=== PATIENT | female | born 1975 | race Caucasian/White ===

== ENCOUNTER 2016-08-04 03:05 | Emergency (ER) | payer SELFPAY ==
--- NOTE | 2016-08-04 04:48 | ED NURSING NOTES ---
Clinical Report - Nurses [facility] [address] [place] [address] 08/04/2016 3:06 Patient: VIVI ISSA TRIAGE Triage time 03:18. Acuity: LEVEL 3. Chief Complaint: RIGHT LOWER EXTREMITY PAIN and REDNESS. 03:26. Alert. SEPSIS SCREEN: Sepsis Screen. Negative (no infection suspected/documented). ZACHARY COMA SCORE: Zachary Coma Scale: 15- eyes open spontaneously (4); best verbal response- oriented x 4 (5); best motor response- obeys commands (6). --03:26 Tolu Vale R.N. 03:18 08/04/16. BP: 151/99. HR: 98. RR: 17. O2 saturation: 96% on room air. Temp: 98.7 F (oral). Pain level now: 10/09. --03:26 Tolu Vale R.N. Weight: 142.8 kg stated. Height/Length: 64 inches Per Patient. BMI: 54.1. --03:22 Tolu Vale R.N. Medications None. --03:22 Tolu Vale R.N. Medication/allergy information source: the patient. --03:26 Tolu Vale R.N. Allergies NSAIDs. --03:22 Tolu Vale R.N. History Arrived by private vehicle. Historian: patient. Unaccompanied. Primary physician (None). No injury occurred. This occurred last night. ( Patient reports a recurrent cellulitis of right lower leg). 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 PAST MEDICAL HX: Tetanus status: up-to-date. Immunizations: up-to-date. Last normal menstrual period- Ended 2 days ago. SOCIAL HX: Former smoker, end date 2009. Occasional alcohol use. History of drug use. No infectious disease exposure. ABUSE ASSESSMENT: No report of abuse. FALL RISK ASSESSMENT: Fall risk assessment completed. No fall risk identified. NUTRITIONAL RISK ASSESSMENT: The nutritional risk assessment revealed no deficiencies. FUNCTIONAL ASSESSMENT: Functional assessment: no impairments noted. LEARNING NEEDS ASSESSMENT: The learning needs assessment revealed no barriers. SKIN INTEGRITY ASSESSMENT: Skin integrity risk assessment completed. No skin integrity risk identified. --03:26 Tolu Vale R.N. PROBLEMS: Cellulitis. Renal Failure. Obesity. Eczema. Dental Abscess. Dental Caries. --03:22 Tolu Vale R.N. ADDITIONAL SURGERIES: . Knee Surgery. --03:22 Tolu Vale R.N. Interventions ID band on patient. To treatment room. --03:26 Tolu Vale R.N. PHYSICAL ASSESSMENT 03:26. Ambulatory to room. GENERAL / NEURO / PSYCH: Oriented X 4. Alert. EXTREMITIES: Neuro-vascular status intact to the extremity. Right leg: erythema. SKIN: Skin intact. Skin is warm and dry. --03:26 Tolu Vale R.N. NURSING PROGRESS NOTES 03:27. Two patient identifiers checked. Call light placed in reach. Bed placed in lowest position. Brakes of bed on. Patient ready for evaluation- chart flagged. --03:27 Tolu Vale R.N. 04:36 08/04/2016 Site #1 started via IV in the right antecubital space with an 20g angiocath, with aseptic technique and good blood return; one attempt. Blood drawn: rainbow set. Labeled in the presence of the patient and sent to the lab. Saline lock flushed with 10 mL saline. --04:36 Tolu Vale R.N. 04:36 08/04/2016 Started 1.5 gm of Vancomycin IVPB in bag #1 500 mL; at 353 mL/hr over 1.5 hour(s) via site #1 via IV pump. Allergies verified and confirmed 5 rights. IV patency established. IV site checked: no pain, redness, or swelling. IV flushed thoroughly pre- and post-medication administration. --04:37 Tolu Vale R.N. 06:06 08/04/2016 Vancomycin IVPB Discontinued: bag #1 infused upon discharge. Total amount infused: 520 mL. IV patency established. IV site checked: no pain, redness, or swelling. IV flushed thoroughly. --06:06 Tolu Vale R.N. 06:20 08/04/2016 Benadryl (DiphenhydrAMINE HCl) PO 25 mg given. Allergies verified, confirmed 5 rights and sedative warning given to the patient and patient's brush and broom clipper. --06:20 Tolu Vale R.N. 06:09 Patient complaining of itching. --06:21 Tolu Vale R.N. 06:12. Cold pack applied (given to pt). --06:21 Tolu Vale R.N. 06:44 08/04/2016 Benadryl (DiphenhydrAMINE HCl) PO 25 mg given. Allergies verified and confirmed 5 rights. --06:48 Tolu Vale R.N. 06:47. The patient is calm and resting quietly. Overall patient status- she states feels better. GENERAL / NEURO / PSYCH: Alert. Oriented X 4. RESPIRATORY: No respiratory distress. EXTREMITIES: Neuro-vascular status intact to the extremities. SKIN: Skin is warm and dry. --06:49 Tolu Vale R.N. DISPOSITION / DISCHARGE 06:06 08/04/2016 Site #1 removed upon discharge. Catheter intact. Bandage applied. --06:06 Tolu Vale R.N. Departure time: 06:49. Condition at departure: stable. No learning barriers present. Discharge instructions provided and reviewed with the patient. Reviewed medication(s) side effects, precautions, dosing and course information. Prescription(s) given to the patient. Patient verbalized understanding. Written instructions provided in Czech. The patient was discharged home and accompanied by brush and broom clipper. She left the Emergency Department ambulatory and via private vehicle. 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 FALL RISK ASSESSMENT: Fall risk assessment completed. No fall risk identified. --06:49 Tolu Vale R.N. 06:02 08/04/16. BP: 122/70. HR: 96. RR: 16. O2 saturation: 95% on room air. Pain level now: 07/12. --06:49 Tolu Vale R.N. Locked/Released at 08/04/2016 6:50 by Tolu Vale R.N.
--- NOTE | 2016-08-04 04:48 | ED CLINICAL REPORT ---
Clinical Report - Physicians/Mid Levels [facility] [address] [place] [address] 08/04/2016 3:06 Patient: VIVI ISSA Time Seen: 03:51. Arrived- By private vehicle. Historian- patient. HISTORY OF PRESENT ILLNESS Chief Complaint: SKIN RASH and TENDER AREA. This started several days ago and is still present. It is described as painful. It has been located on the right lower extremity. A possible cause has been identified (Pt states she had cellulitis in the same area several months ago, and believes this is the same.). Similar symptoms previously: Once. Recent medical care: Not recently seen/assessed. REVIEW OF SYSTEMS The patient has had low grade fever. No chills, sore throat, cough, difficulty breathing or hoarseness. No lump in throat, enlarged lymph nodes, headache, eye irritation or chest pain. No abdominal pain, nausea, diarrhea, difficulty with urination or joint pain. No vomiting. All systems otherwise negative, except as recorded above. PAST HISTORY Problems: Torn AcL. Renal Failure. Obesity. Eczema. Tetanus Status. Dental Abscess. Dental Pain. Strep Throat. Dental Caries. Immunizations. LNMP - Last Normal Menstrual Period. Additional Surgeries: . Knee Surgery. Medications: None. Allergies: NSAIDs. SOCIAL HISTORY Former smoker. Occasional alcohol use. No drug use. ADDITIONAL NOTES The nursing notes have been reviewed. PHYSICAL EXAM Vital Signs: 08/04/2016 03:18 BP: 151/99. HR: 98. RR: 17. O2 saturation: 96%. Temp: 98.7 F. Pain level now: 5/10. Have been reviewed. Appearance: Alert. Oriented X3. No acute distress. Eyes: Pupils equal, round and reactive to light. Conjunctivae and eyelids normal. Neck: Neck supple. CVS: Normal heart rate and rhythm. Heart sounds normal. Respiratory: No respiratory distress. Breath sounds normal. Chest nontender. Skin: Skin warm and dry. Large area of cellulitis with tenderness, erythema and warmth to right leg (Involves the anterior portion only, of the R lower leg. Does not include knee or ankle joints.). Extremities: (Normal, other than cellulitis of RLE.). Neuro: Oriented X 3. No motor deficit. No sensory deficit. LABS, X-RAYS, AND EKG Pulse Oximetry: 08/04/2016 03:18 O2 saturation: 96%. (FIO2 - room air). Interpretation: normal. PROGRESS AND PROCEDURES Course of Care: Pt was given a dose of vancomycin. She did develop some itching at the end of her dose, and she was given IV Benadryl for this. Patient counseled in person regarding the patient's stable condition, diagnosis and need for follow-up. Concerns were addressed. Old medical records reviewed. Disposition: Discharged. Condition: stable. CLINICAL IMPRESSION Cellulitis of the right lower leg. INSTRUCTIONS Elevate affected areas above chest level as needed and until better. Warnings: GENERAL WARNINGS: Return or contact your physician immediately if your condition worsens or changes unexpectedly, if not improving as expected, or if other problems arise. Prescription Medications: Bactrim DS 800 mg / 160 mg: take 1 tablet orally every 12 hours for 7 days. No refill. Substitution is permissible. Follow-up: Follow up with your doctor in seven days if not better. Understanding of the discharge instructions verbalized by patient. (Electronically signed by Kristin Kulkarni MD 08/04/2016 7:59)
--- NOTE | 2016-08-04 04:48 | ED ORDER SUMMARY ---
..... Patient: VIVI ISSA OrderSheet [facility] VisitID: [id number] [address] [place] [address] 40y, F Registration Date/Time: 08/04/2016 ORDER SHEET Weight: 142.8 kg (stated) Allergies: NSAIDs GENERAL ORDERS: MEDICATION ORDERS: Benadryl PO 25 mg (NOW) (06:20 08/04/2016 JQuivey R.N. per protocol) (6:20 JQuivey R.N.) Benadryl PO 25 mg (NOW) (06:48 08/04/2016 JQuivey R.N. per protocol) (6:48 JQuivey R.N.) IV FLUIDS: Vancomycin IV 1.5 gm/500 mL (NOW) (04:11 08/04/2016 Haja BOWLING) (Ack 4:18 JQuivey R.N.) (4:37 JQuivey R.N.) ORDER SHEET NOTES: [Electronically signed by Tolu Vale R.N. (06:50 08/04/2016)] [Electronically signed by Kritsin Kulkarni MD (07:59 08/04/2016)] [Electronically locked/signed by Tolu Vale R.N. (06:50 08/04/2016)]
--- NOTE | 2016-08-04 04:48 | ED ORDER SUMMARY ---
..... Patient: VIVI ISSA OrderSheet [facility] VisitID: [id number] [address] [place] [address] 40y, F Registration Date/Time: 08/04/2016 ORDER SHEET Weight: 142.8 kg (stated) Allergies: NSAIDs GENERAL ORDERS: MEDICATION ORDERS: Benadryl PO 25 mg (NOW) (06:20 08/04/2016 JQuivey R.N. per protocol) (6:20 JQuivey R.N.) Benadryl PO 25 mg (NOW) (06:48 08/04/2016 JQuivey R.N. per protocol) (6:48 JQuivey R.N.) IV FLUIDS: Vancomycin IV 1.5 gm/500 mL (NOW) (04:11 08/04/2016 Haja BOWLING) (Ack 4:18 JQuivey R.N.) (4:37 JQuivey R.N.) ORDER SHEET NOTES: [Electronically signed by Tolu Vale R.N. (06:50 08/04/2016)] [Electronically signed by Kristin Kulkarni MD (07:59 08/04/2016)] [Electronically locked/signed by Tolu Vale R.N. (06:50 08/04/2016)]
--- NOTE | 2016-08-04 04:48 | ED NURSING NOTES ---
Clinical Report - Nurses [facility] [address] [place] [address] 08/04/2016 3:06 Patient: VIVI ISSA TRIAGE Triage time 03:18. Acuity: LEVEL 3. Chief Complaint: RIGHT LOWER EXTREMITY PAIN and REDNESS. 03:26. Alert. SEPSIS SCREEN: Sepsis Screen. Negative (no infection suspected/documented). ZACHARY COMA SCORE: Zachary Coma Scale: 15- eyes open spontaneously (4); best verbal response- oriented x 4 (5); best motor response- obeys commands (6). --03:26 Tolu Vale R.N. 03:18 08/04/16. BP: 151/99. HR: 98. RR: 17. O2 saturation: 96% on room air. Temp: 98.7 F (oral). Pain level now: 10/09. --03:26 Tolu Vale R.N. Weight: 142.8 kg stated. Height/Length: 64 inches Per Patient. BMI: 54.1. --03:22 Tolu Vale R.N. Medications None. --03:22 Tolu Vale R.N. Medication/allergy information source: the patient. --03:26 Tolu Vale R.N. Allergies NSAIDs. --03:22 Tolu Vale R.N. History Arrived by private vehicle. Historian: patient. Unaccompanied. Primary physician (None). No injury occurred. This occurred last night. ( Patient reports a recurrent cellulitis of right lower leg). 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 PAST MEDICAL HX: Tetanus status: up-to-date. Immunizations: up-to-date. Last normal menstrual period- Ended 2 days ago. SOCIAL HX: Former smoker, end date 2009. Occasional alcohol use. History of drug use. No infectious disease exposure. ABUSE ASSESSMENT: No report of abuse. FALL RISK ASSESSMENT: Fall risk assessment completed. No fall risk identified. NUTRITIONAL RISK ASSESSMENT: The nutritional risk assessment revealed no deficiencies. FUNCTIONAL ASSESSMENT: Functional assessment: no impairments noted. LEARNING NEEDS ASSESSMENT: The learning needs assessment revealed no barriers. SKIN INTEGRITY ASSESSMENT: Skin integrity risk assessment completed. No skin integrity risk identified. --03:26 Tolu Vale R.N. PROBLEMS: Cellulitis. Renal Failure. Obesity. Eczema. Dental Abscess. Dental Caries. --03:22 Tolu Vale R.N. ADDITIONAL SURGERIES: . Knee Surgery. --03:22 Tolu Vale R.N. Interventions ID band on patient. To treatment room. --03:26 Tolu Vale R.N. PHYSICAL ASSESSMENT 03:26. Ambulatory to room. GENERAL / NEURO / PSYCH: Oriented X 4. Alert. EXTREMITIES: Neuro-vascular status intact to the extremity. Right leg: erythema. SKIN: Skin intact. Skin is warm and dry. --03:26 Tolu Vale R.N. NURSING PROGRESS NOTES 03:27. Two patient identifiers checked. Call light placed in reach. Bed placed in lowest position. Brakes of bed on. Patient ready for evaluation- chart flagged. --03:27 Tolu Vale R.N. 04:36 08/04/2016 Site #1 started via IV in the right antecubital space with an 20g angiocath, with aseptic technique and good blood return; one attempt. Blood drawn: rainbow set. Labeled in the presence of the patient and sent to the lab. Saline lock flushed with 10 mL saline. --04:36 Tolu Vale R.N. 04:36 08/04/2016 Started 1.5 gm of Vancomycin IVPB in bag #1 500 mL; at 353 mL/hr over 1.5 hour(s) via site #1 via IV pump. Allergies verified and confirmed 5 rights. IV patency established. IV site checked: no pain, redness, or swelling. IV flushed thoroughly pre- and post-medication administration. --04:37 Tolu Vale R.N. 06:06 08/04/2016 Vancomycin IVPB Discontinued: bag #1 infused upon discharge. Total amount infused: 520 mL. IV patency established. IV site checked: no pain, redness, or swelling. IV flushed thoroughly. --06:06 Tolu Vale R.N. 06:20 08/04/2016 Benadryl (DiphenhydrAMINE HCl) PO 25 mg given. Allergies verified, confirmed 5 rights and sedative warning given to the patient and patient's kilnman. --06:20 Tolu Vale R.N. 06:09 Patient complaining of itching. --06:21 Tolu Vale R.N. 06:12. Cold pack applied (given to pt). --06:21 Tolu Vale R.N. 06:44 08/04/2016 Benadryl (DiphenhydrAMINE HCl) PO 25 mg given. Allergies verified and confirmed 5 rights. --06:48 Tolu Vale R.N. 06:47. The patient is calm and resting quietly. Overall patient status- she states feels better. GENERAL / NEURO / PSYCH: Alert. Oriented X 4. RESPIRATORY: No respiratory distress. EXTREMITIES: Neuro-vascular status intact to the extremities. SKIN: Skin is warm and dry. --06:49 Tolu Vale R.N. DISPOSITION / DISCHARGE 06:06 08/04/2016 Site #1 removed upon discharge. Catheter intact. Bandage applied. --06:06 Tolu Vale R.N. Departure time: 06:49. Condition at departure: stable. No learning barriers present. Discharge instructions provided and reviewed with the patient. Reviewed medication(s) side effects, precautions, dosing and course information. Prescription(s) given to the patient. Patient verbalized understanding. Written instructions provided in Kyrgyz. The patient was discharged home and accompanied by kilnman. She left the Emergency Department ambulatory and via private vehicle. 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 FALL RISK ASSESSMENT: Fall risk assessment completed. No fall risk identified. --06:49 Tolu Vale R.N. 06:02 08/04/16. BP: 122/70. HR: 96. RR: 16. O2 saturation: 95% on room air. Pain level now: 07/12. --06:49 Tolu Vale R.N. Locked/Released at 08/04/2016 6:50 by Tolu Vale R.N.
--- NOTE | 2016-08-04 08:00 | ED DISCHARGE INSTRUCTIONS ---
Patient: VIVI ISSA General Instructions [facility] VisitID: [id number] [place] [address] 40y, F Registration Date/Time: 08/04/2016 Cellulitis of the right lower leg. INSTRUCTIONS Elevate affected areas above chest level as needed and until better. Warnings: GENERAL WARNINGS: Return or contact your physician immediately if your condition worsens or changes unexpectedly, if not improving as expected, or if other problems arise. Prescription Medications: Bactrim DS 800 mg / 160 mg: take 1 tablet orally every 12 hours for 7 days. No refill. Substitution is permissible. Follow-up: Follow up with your doctor in seven days if not better. Understanding of the discharge instructions verbalized by patient. ADDITIONAL INFORMATION Cellulitis You have an infection of the skin known as cellulitis. This usually starts with a scrape, cut, insect bite, blister or other opening in the skin which becomes infected. This is a serious condition. It must be watched closely to be sure the infection is not spreading. With antibiotic treatment, the size of the red area will gradually shrink in size until the skin returns to normal. This will take 7-10 days. The red area should never increase in size once the antibiotic medicine has been started. Occasionally, an infection will be resistant to one antibiotic and another one will have to be used. Home Care: 1) Limit the use of the affected part, since excess movement can cause the infection to spread. 2) If the infection is on your leg, walk as little as possible during the first few days of the treatment. Keep your leg elevated while sitting. This will reduce swelling. 3) Take all of the antibiotic medicine exactly as directed until it is gone. Be careful not to miss any doses, especially during the first seven days. Follow Up with your doctor or this facility as directed. Check the infected area daily for the warning signs listed below. Get Prompt Medical Attention if any of the following occur: -- Spreading area of redness -- Increasing swelling or pain -- Appearance of pus or drainage -- Fever over 100.4 F (38.0 C) oral, or over 101.4 F (38.6 C) rectal, after two days on antibiotics You have been given the following additional information: Cellulitis (Electronically signed by Kristin Kulkarni MD 08/04/2016 7:59)
--- NOTE | 2016-08-04 08:00 | ED MED RECONCILIATION SUMMARY ---
Patient: VIVI ISSA Medication Reconciliation Report [facility] VisitID: [id number] [address] [place] [address] 40y, F Registration Date/Time: 08/04/2016 Weight: 142.8 kg Height/Length: 64 in. BMI: 54.1 ALLERGIES: NSAIDs The patient's Home Medications are listed below: NONE. The source(s) of the original Home Medication information: patient The following Medications were given to the patient in the Emergency Department: Vancomycin [IVPB] IVPB bolus 0, then 1.5 gm 353 mL/hr, administered: 08/04/2016 4:36:00 AM Benadryl [PO] PO 25 mg, administered: 08/04/2016 6:20:00 AM Benadryl [PO] PO 25 mg, administered: 08/04/2016 6:44:00 AM The following Medications were prescribed to the patient: Bactrim DS 800 mg / 160 mg: take 1 tablet orally every 12 hours for 7 days. No refill. Substitution is permissible. -- Kristin Kulkarni MD
--- NOTE | 2016-08-04 08:00 | ED MAR SUMMARY ---
..... Medication Administration Record [facility] [address] [place] [address] Patient: VIVI ISSA Visit ID: [id number] 40y, F Weight: 142.8 kg Height/Length: 64 in BMI: 54.1 ALLERGIES: NSAIDs Start 04:36 08/04/2016 Tolu Vale RHarryN., Stop 06:06 08/04/2016 Tolu Vale R.N. Medication Administered: VANCOMYCIN [IVPB], Dose: 1.5 gm IVPB over 1.5 hour(s), Rate: 353 mL/hr, Dispensed: 500 mL bag, Site: #1 right AC. Medication Ordered: Vancomycin IV 1.5 gm/500 mL (NOW). Given 06:20 08/04/2016 Tolu Vale RHarryN. Medication Administered: BENADRYL [PO] (DIPHENHYDRAMINE HCL), Dose: 25 mg PO. Medication Ordered: Benadryl PO 25 mg (NOW). Given 06:44 08/04/2016 Tolu Vale R.N. Medication Administered: BENADRYL [PO] (DIPHENHYDRAMINE HCL), Dose: 25 mg PO. Medication Ordered: Benadryl PO 25 mg (NOW).
--- NOTE | 2016-08-04 08:00 | ED MED RECONCILIATION SUMMARY ---
Patient: VIVI ISSA Medication Reconciliation Report [facility] VisitID: [id number] [address] [place] [address] 40y, F Registration Date/Time: 08/04/2016 Weight: 142.8 kg Height/Length: 64 in. BMI: 54.1 ALLERGIES: NSAIDs The patient's Home Medications are listed below: NONE. The source(s) of the original Home Medication information: patient The following Medications were given to the patient in the Emergency Department: Vancomycin [IVPB] IVPB bolus 0, then 1.5 gm 353 mL/hr, administered: 08/04/2016 4:36:00 AM Benadryl [PO] PO 25 mg, administered: 08/04/2016 6:20:00 AM Benadryl [PO] PO 25 mg, administered: 08/04/2016 6:44:00 AM The following Medications were prescribed to the patient: Bactrim DS 800 mg / 160 mg: take 1 tablet orally every 12 hours for 7 days. No refill. Substitution is permissible. -- Kristin Kulkarni MD
--- NOTE | 2016-08-04 08:00 | ED MAR SUMMARY ---
..... Medication Administration Record [facility] [address] [place] [address] Patient: VIVI ISSA Visit ID: [id number] 40y, F Weight: 142.8 kg Height/Length: 64 in BMI: 54.1 ALLERGIES: NSAIDs Start 04:36 08/04/2016 Tolu Vale RHarryN., Stop 06:06 08/04/2016 Tolu Vale R.N. Medication Administered: VANCOMYCIN [IVPB], Dose: 1.5 gm IVPB over 1.5 hour(s), Rate: 353 mL/hr, Dispensed: 500 mL bag, Site: #1 right AC. Medication Ordered: Vancomycin IV 1.5 gm/500 mL (NOW). Given 06:20 08/04/2016 Tolu Vale RHarryN. Medication Administered: BENADRYL [PO] (DIPHENHYDRAMINE HCL), Dose: 25 mg PO. Medication Ordered: Benadryl PO 25 mg (NOW). Given 06:44 08/04/2016 Tolu Vale R.N. Medication Administered: BENADRYL [PO] (DIPHENHYDRAMINE HCL), Dose: 25 mg PO. Medication Ordered: Benadryl PO 25 mg (NOW).
== END 2016-08-04 06:49 | disposition home or self-care (01) ==
LOC: ED SRH 03:05
DX: L03.115 Cellulitis of right lower limb (principal); Z87.891 Personal history of nicotine dependence; Z88.8 Allergy status to other drugs, medicaments and biological substances

== ENCOUNTER 2016-08-12 12:56 | Emergency (ER) | payer SELFPAY ==
--- NOTE | 2016-08-12 13:58 | ED ORDER SUMMARY ---
..... Patient: VIVI ISSA OrderSheet [facility] VisitID: [id number] [address] [place] [address] 40y, F Registration Date/Time: 08/12/2016 ORDER SHEET Weight: 140.6 kg (stated) Allergies: NSAIDs GENERAL ORDERS: - (please outline area of erythema with skin pen) (13:56 08/12/2016 Emerson A.R.N.P.) (14:07 Tricia Subramanian) MEDICATION ORDERS: IV FLUIDS: ORDER SHEET NOTES: [Electronically signed by Angie HannahRHarryN.PHarry (14:51 08/12/2016)] [Electronically signed by Janie Durbin R.N. (14:55 08/12/2016)] [Electronically locked/signed by Janie Durbin R.N. (14:55 08/12/2016)]
--- NOTE | 2016-08-12 13:58 | ED ORDER SUMMARY ---
..... Patient: VIVI ISSA OrderSheet [facility] VisitID: [id number] [address] [place] [address] 40y, F Registration Date/Time: 08/12/2016 ORDER SHEET Weight: 140.6 kg (stated) Allergies: NSAIDs GENERAL ORDERS: - (please outline area of erythema with skin pen) (13:56 08/12/2016 Emerson A.R.N.P.) (14:07 Tricia Subramanian) MEDICATION ORDERS: IV FLUIDS: ORDER SHEET NOTES: [Electronically signed by Angie HannahRHarryN.PHarry (14:51 08/12/2016)] [Electronically signed by Janie Durbin R.N. (14:55 08/12/2016)] [Electronically locked/signed by Janie Durbin R.N. (14:55 08/12/2016)]
--- NOTE | 2016-08-12 13:58 | ED NURSING NOTES ---
Clinical Report - Nurses [facility] [address] [place] [address] 08/12/2016 12:56 [id number] Triage time 13:16. Acuity: LEVEL 3. Chief Complaint: RECHECK OF CELLULITIS. Alert. No acute distress. ZACHARY COMA SCORE: Zachary Coma Scale: 15- eyes open spontaneously (4); best verbal response- oriented x 4 (5); best motor response- obeys commands (6). --13:25 Janie Durbin R.N. 13:16 08/12/16. BP: 153/94. HR: 89. RR: 18. O2 saturation: 97% on room air. Temp: 97.8 F (oral). Pain level now: 0/10. --13:25 Janie Durbin R.N. Weight: 140.6 kg stated. Height/Length: 63 inches Per Patient. BMI: 54.9. --13:21 Janie Durbin R.N. Medications None. --13:18 Janie Durbin R.N. Medication/allergy information source: the patient's pill bottles. --13:25 Janie Durbin R.N. Allergies NSAIDs. --13:18 Janie Durbin R.N. History Arrived by private vehicle. Historian: patient. Unaccompanied. Primary physician (none). Location: left lower leg. She has had redness. Previous treatment: Previously seen in this ED eight days ago. PO antibiotic given in ED. Prescription given. ( finished her course of Bactrim DS). PAST MEDICAL HX: Last normal menstrual period- July 2016. SOCIAL HX: Smoker- current status unknown (no). Occasional alcohol use. No drug use. FALL RISK ASSESSMENT: Fall risk assessment completed. No fall risk identified. FUNCTIONAL ASSESSMENT: Functional assessment: no impairments noted. LEARNING NEEDS ASSESSMENT: The learning needs assessment revealed no barriers. --13:25 Janie Durbin R.N. PROBLEMS: Cellulitis. Torn AcL. Renal Failure. Obesity. Eczema. Tetanus Status. Dental Abscess. Dental Pain. Strep Throat. Abscess. Dental Caries. Immunizations. LNMP - Last Normal Menstrual Period. --13:19 Janie Durbin R.N. ADDITIONAL SURGERIES: . Knee Surgery. --13:19 Janie Durbin R.N. Assessment GENERAL / NEURO / PSYCH: Alert. Oriented X 4. Appears in no acute distress. Patient appears calm and cooperative. RESPIRATORY: Respirations not labored. SKIN: Skin is warm and dry. --13:25 Janie Durbin R.N. Interventions ID band on patient. To treatment room. --13:25 Janie Durbin R.N. PHYSICAL ASSESSMENT 13:30 08/12/16. Ambulatory to room. GENERAL / NEURO / PSYCH: Alert. Oriented X 4. Appears in no acute distress. SKIN: Warmth. Skin is warm and dry. Swelling. Erythema. --13:30 Janie Durbin R.N. NURSING PROGRESS NOTES 13:30 08/12/16. Call light placed in reach. Side rails up x 1. Bed placed in lowest position. Brakes of bed on. --13:30 Janie Durbin R.N. 14:20. The patient is calm and resting quietly. Overall patient status is the same- she states feels the same (right leg redness outlined and dated). --14:53 Janie Durbin R.N. DISPOSITION / DISCHARGE Departure time: 1420. Condition at departure: stable. No learning barriers present. Discharge instructions provided and reviewed with the patient. Reviewed medication(s). Prescription(s) given to the patient. Patient verbalized understanding. Written instructions provided in Mauritian. The patient was discharged home and unaccompanied at time of discharge. She left the Emergency Department ambulatory and via private vehicle. FALL RISK ASSESSMENT: Fall risk assessment completed. No fall risk identified. --14:55 Janie Durbin R.N. 14:52 08/12/16. BP: 152/89. HR: 89. RR: 18. O2 saturation: 99% on room air. Pain level now: 01/09. --14:55 Janie Durbin R.N. Locked/Released at 08/12/2016 14:55 by Janie Durbin R.N.
--- NOTE | 2016-08-12 13:58 | ED CLINICAL REPORT ---
Clinical Report - Physicians/Mid Levels [facility] [address] [place] [address] 08/12/2016 12:56 Patient: VIVI ISSA Time Seen: 13:42; initial patient contact, initial documentation, patient care assumed. Arrived- By private vehicle. Historian- patient. RETURN VISIT: recently seen in this ED by another ED physician. Seen now for the same problem as before. HISTORY OF PRESENT ILLNESS Treated in emergency department eight days ago. Chief Complaint: CELLULITIS RECHECK. The patient has experienced redness since the procedure was performed. Prescription antibiotic- Bactrim (finished it). Previous emergency department treatment: prescription antibiotic given. (states that there isn't much pain and the redness is better, but when she had this before she was on abx longer than 7 days, and she thinks she needs more abx, no f/u, came here). REVIEW OF SYSTEMS All systems otherwise negative, except as recorded above. PAST HISTORY See nurses notes. PROBLEMS: Cellulitis. Torn AcL. Renal Failure. Obesity. Eczema. Tetanus Status. Dental Abscess. Dental Pain. Strep Throat. Abscess. Dental Caries. Immunizations. LNMP - Last Normal Menstrual Period. --13:19 Janie Durbin R.N. ADDITIONAL SURGERIES: . Knee Surgery. --13:19 Janie Durbin R.N. SOCIAL HISTORY Never smoker. Occasional alcohol use. No drug use. No recent travel. Is a local resident. FAMILY HISTORY No significant family medical history. ADDITIONAL NOTES The nursing notes have been reviewed with agreement regarding the chief complaint, HPI, ROS, PMH and patient medications and allergies. PHYSICAL EXAM Vital Signs: 08/12/2016 13:16 BP: 153/94. HR: 89. RR: 18. O2 saturation: 97%. Temp: 97.8 F. Pain level now: 0/10. Have been reviewed as abnormal and appear to be correct. Hypertensive. Heart rate normal. Respiratory rate normal. Temperature normal. Oxygen saturation normal. Appearance: Alert. Oriented X3. No acute distress. Head: Head non-tender. No swelling of head. Eyes: Pupils equal, round and reactive to light. EOM intact. Neck: Neck non-tender. Painless ROM. Skin: Medium area of erythema with warmth to right leg. No tenderness, swelling or lymphangitis. Warmth. Healing cellulitis. (unable to fully assess whether cellulitis is better or not because area of erythema was not marked, can only go by pt's hx that it has improved). Extremities: Normal inspection. Extremities atraumatic. No lower extremity edema. Neuro, Vascular and Tendons: Sensation intact. No tendon injury. No vascular compromise. Neuro: Oriented X 3. No motor deficit. No sensory deficit. PROGRESS AND PROCEDURES Patient counseled in person regarding the patient's stable condition and diagnosis. 13:58. Differential Diagnosis: Other possible considerations: mrsa, cellulitis, necrotizing fascitis, chronic wound, abscess, fungus, dermatitis. Above considerations are based on history and physical exam. Differential diagnosis was discussed with patient. Disposition: Discharged home in good and unchanged condition (13:58). Condition: good and stable. CLINICAL IMPRESSION Healing cellulitis of the right lower leg. INSTRUCTIONS Warnings: GENERAL WARNINGS: Return or contact your physician immediately if your condition worsens or changes unexpectedly, if not improving as expected, or if other problems arise. Specifically return if problem worsens. Prescription Medications: Bactrim DS 800 mg / 160 mg: take 1 tablet orally every 12 hours for 10 days. No refill. Follow-up: Follow up with your doctor in about three days even if well and for wound check. Call for an appointment. Summary of care provided to patient. Screening today revealed the patient's blood pressure to be in the hypertensive range. The patient should follow up with a primary care provider for blood pressure management. Understanding of the discharge instructions verbalized by patient. (Electronically signed by Angie Hannah A.R.N.P. 08/12/2016 14:51)
--- NOTE | 2016-08-12 14:55 | ED DISCHARGE INSTRUCTIONS ---
Patient: VIVI ISSA General Instructions [facility] VisitID: [id number] [place] [address] 40y, F Registration Date/Time: 08/12/2016 Healing cellulitis of the right lower leg. INSTRUCTIONS Warnings: GENERAL WARNINGS: Return or contact your physician immediately if your condition worsens or changes unexpectedly, if not improving as expected, or if other problems arise. Specifically return if problem worsens. Prescription Medications: Bactrim DS 800 mg / 160 mg: take 1 tablet orally every 12 hours for 10 days. No refill. Follow-up: Follow up with your doctor in about three days even if well and for wound check. Call for an appointment. Summary of care provided to patient. Screening today revealed the patient's blood pressure to be in the hypertensive range. The patient should follow up with a primary care provider for blood pressure management. Understanding of the discharge instructions verbalized by patient. ADDITIONAL INFORMATION Cellulitis You have an infection of the skin known as cellulitis. This usually starts with a scrape, cut, insect bite, blister or other opening in the skin which becomes infected. This is a serious condition. It must be watched closely to be sure the infection is not spreading. With antibiotic treatment, the size of the red area will gradually shrink in size until the skin returns to normal. This will take 7-10 days. The red area should never increase in size once the antibiotic medicine has been started. Occasionally, an infection will be resistant to one antibiotic and another one will have to be used. Home Care: 1) Limit the use of the affected part, since excess movement can cause the infection to spread. 2) If the infection is on your leg, walk as little as possible during the first few days of the treatment. Keep your leg elevated while sitting. This will reduce swelling. 3) Take all of the antibiotic medicine exactly as directed until it is gone. Be careful not to miss any doses, especially during the first seven days. Follow Up with your doctor or this facility as directed. Check the infected area daily for the warning signs listed below. Get Prompt Medical Attention if any of the following occur: -- Spreading area of redness -- Increasing swelling or pain -- Appearance of pus or drainage -- Fever over 100.4 F (38.0 C) oral, or over 101.4 F (38.6 C) rectal, after two days on antibiotics Sulfamethoxazole, Trimethoprim Oral tablet What is this medicine? SULFAMETHOXAZOLE; TRIMETHOPRIM or SMX-TMP (suhl fuh meth OK chica zohl; trye METH oh prim) is a combination of a sulfonamide antibiotic and a second antibiotic, trimethoprim. It is used to treat or prevent certain kinds of bacterial infections. It will not work for colds, flu, or other viral infections. How should I use this medicine? Take this medicine by mouth with a full glass of water. Follow the directions on the prescription label. Take your medicine at regular intervals. Do not take it more often than directed. Do not skip doses or stop your medicine early. Talk to your nut roaster helper regarding the use of this medicine in children. Special care may be needed. This medicine has been used in children as young as 2 months of age. What side effects may I notice from receiving this medicine? Side effects that you should report to your doctor or health lawn care professional as soon as possible: allergic reactions like skin rash or hives, swelling of the face, lips, or tongue breathing problems fever or chills, sore throat irregular heartbeat, chest pain joint or muscle pain pain or difficulty passing urine red pinpoint spots on skin redness, blistering, peeling or loosening of the skin, including inside the mouth unusual bleeding or bruising unusually weak or tired yellowing of the eyes or skin Side effects that usually do not require medical attention (report to your doctor or health lawn care professional if they continue or are bothersome): diarrhea dizziness headache loss of appetite nausea, vomiting nervousness What may interact with this medicine? Do not take this medicine with any of the following medications: aminobenzoate potassium dofetilide metronidazole This medicine may also interact with the following medications: JOHNNY inhibitors like benazepril, enalapril, lisinopril, and ramipril cyclosporine digoxin diuretics indomethacin medicines for diabetes methenamine methotrexate phenytoin potassium supplements pyrimethamine sulfinpyrazone tricyclic antidepressants warfarin What if I miss a dose? If you miss a dose, take it as soon as you can. If it is almost time for your next dose, take only that dose. Do not take double or extra doses. Where should I keep my medicine? Keep out of the reach of children. Store at room temperature between 20 to 25 degrees C (68 to 77 degrees F). Protect from light. Throw away any unused medicine after the expiration date. What should I tell my health care provider before I take this medicine? They need to know if you have any of these conditions: anemia asthma being treated with anticonvulsants if you frequently drink alcohol containing drinks kidney disease liver disease low level of folic acid or [id number] dehydrogenase poor nutrition or malabsorption porphyria severe allergies thyroid disorder an unusual or allergic reaction to sulfamethoxazole, trimethoprim, sulfa drugs, other medicines, foods, dyes, or preservatives or trying to get breast-feeding What should I watch for while using this medicine? Tell your doctor or health lawn care professional if your symptoms do not improve. Drink several glasses of water a day to reduce the risk of kidney problems. Do not treat diarrhea with over the counter products. Contact your doctor if you have diarrhea that lasts more than 2 days or if it is severe and watery. This medicine can make you more sensitive to the sun. Keep out of the sun. If you cannot avoid being in the sun, wear protective clothing and use a sunscreen. Do not use sun lamps or tanning beds/booths. You have been given the following additional information: Cellulitis Sulfamethoxazole, Trimethoprim Oral tablet (Electronically signed by Angie Hannah A.R.N.P. 08/12/2016 14:51)
--- NOTE | 2016-08-12 14:55 | ED MAR SUMMARY ---
..... Medication Administration Record [facility] [address] [place], [place] [id number] Patient: VIVI ISSA Visit ID: [id number] 40y, F Weight: 140.6 kg Height/Length: 63 in BMI: 54.9 ALLERGIES: NSAIDs
--- NOTE | 2016-08-12 14:55 | ED DISCHARGE INSTRUCTIONS ---
Patient: VIVI ISSA General Instructions [facility] VisitID: [id number] [place] [address] 40y, F Registration Date/Time: 08/12/2016 Healing cellulitis of the right lower leg. INSTRUCTIONS Warnings: GENERAL WARNINGS: Return or contact your physician immediately if your condition worsens or changes unexpectedly, if not improving as expected, or if other problems arise. Specifically return if problem worsens. Prescription Medications: Bactrim DS 800 mg / 160 mg: take 1 tablet orally every 12 hours for 10 days. No refill. Follow-up: Follow up with your doctor in about three days even if well and for wound check. Call for an appointment. Summary of care provided to patient. Screening today revealed the patient's blood pressure to be in the hypertensive range. The patient should follow up with a primary care provider for blood pressure management. Understanding of the discharge instructions verbalized by patient. ADDITIONAL INFORMATION Cellulitis You have an infection of the skin known as cellulitis. This usually starts with a scrape, cut, insect bite, blister or other opening in the skin which becomes infected. This is a serious condition. It must be watched closely to be sure the infection is not spreading. With antibiotic treatment, the size of the red area will gradually shrink in size until the skin returns to normal. This will take 7-10 days. The red area should never increase in size once the antibiotic medicine has been started. Occasionally, an infection will be resistant to one antibiotic and another one will have to be used. Home Care: 1) Limit the use of the affected part, since excess movement can cause the infection to spread. 2) If the infection is on your leg, walk as little as possible during the first few days of the treatment. Keep your leg elevated while sitting. This will reduce swelling. 3) Take all of the antibiotic medicine exactly as directed until it is gone. Be careful not to miss any doses, especially during the first seven days. Follow Up with your doctor or this facility as directed. Check the infected area daily for the warning signs listed below. Get Prompt Medical Attention if any of the following occur: -- Spreading area of redness -- Increasing swelling or pain -- Appearance of pus or drainage -- Fever over 100.4 F (38.0 C) oral, or over 101.4 F (38.6 C) rectal, after two days on antibiotics Sulfamethoxazole, Trimethoprim Oral tablet What is this medicine? SULFAMETHOXAZOLE; TRIMETHOPRIM or SMX-TMP (suhl fuh meth OK chica zohl; trye METH oh prim) is a combination of a sulfonamide antibiotic and a second antibiotic, trimethoprim. It is used to treat or prevent certain kinds of bacterial infections. It will not work for colds, flu, or other viral infections. How should I use this medicine? Take this medicine by mouth with a full glass of water. Follow the directions on the prescription label. Take your medicine at regular intervals. Do not take it more often than directed. Do not skip doses or stop your medicine early. Talk to your manager service desk regarding the use of this medicine in children. Special care may be needed. This medicine has been used in children as young as 2 months of age. What side effects may I notice from receiving this medicine? Side effects that you should report to your doctor or health urgent care technician as soon as possible: allergic reactions like skin rash or hives, swelling of the face, lips, or tongue breathing problems fever or chills, sore throat irregular heartbeat, chest pain joint or muscle pain pain or difficulty passing urine red pinpoint spots on skin redness, blistering, peeling or loosening of the skin, including inside the mouth unusual bleeding or bruising unusually weak or tired yellowing of the eyes or skin Side effects that usually do not require medical attention (report to your doctor or health urgent care technician if they continue or are bothersome): diarrhea dizziness headache loss of appetite nausea, vomiting nervousness What may interact with this medicine? Do not take this medicine with any of the following medications: aminobenzoate potassium dofetilide metronidazole This medicine may also interact with the following medications: JOHNNY inhibitors like benazepril, enalapril, lisinopril, and ramipril cyclosporine digoxin diuretics indomethacin medicines for diabetes methenamine methotrexate phenytoin potassium supplements pyrimethamine sulfinpyrazone tricyclic antidepressants warfarin What if I miss a dose? If you miss a dose, take it as soon as you can. If it is almost time for your next dose, take only that dose. Do not take double or extra doses. Where should I keep my medicine? Keep out of the reach of children. Store at room temperature between 20 to 25 degrees C (68 to 77 degrees F). Protect from light. Throw away any unused medicine after the expiration date. What should I tell my health care provider before I take this medicine? They need to know if you have any of these conditions: anemia asthma being treated with anticonvulsants if you frequently drink alcohol containing drinks kidney disease liver disease low level of folic acid or xalihhz-[id number] dehydrogenase poor nutrition or malabsorption porphyria severe allergies thyroid disorder an unusual or allergic reaction to sulfamethoxazole, trimethoprim, sulfa drugs, other medicines, foods, dyes, or preservatives or trying to get breast-feeding What should I watch for while using this medicine? Tell your doctor or health urgent care technician if your symptoms do not improve. Drink several glasses of water a day to reduce the risk of kidney problems. Do not treat diarrhea with over the counter products. Contact your doctor if you have diarrhea that lasts more than 2 days or if it is severe and watery. This medicine can make you more sensitive to the sun. Keep out of the sun. If you cannot avoid being in the sun, wear protective clothing and use a sunscreen. Do not use sun lamps or tanning beds/booths. You have been given the following additional information: Cellulitis Sulfamethoxazole, Trimethoprim Oral tablet (Electronically signed by Angie Hannah A.R.N.P. 08/12/2016 14:51)
--- NOTE | 2016-08-12 14:55 | ED MED RECONCILIATION SUMMARY ---
Patient: VIVI ISSA Medication Reconciliation Report [facility] VisitID: [id number] [address] [place] [address] 40y, F Registration Date/Time: 08/12/2016 Weight: 140.6 kg Height/Length: 63 in. BMI: 54.9 ALLERGIES: NSAIDs The patient's Home Medications are listed below: NONE. The source(s) of the original Home Medication information: patient's pill bottles The following Medications were given to the patient in the Emergency Department: None. The following Medications were prescribed to the patient: Bactrim DS 800 mg / 160 mg: take 1 tablet orally every 12 hours for 10 days. No refill. -- Angie Hannah A.R.N.P.
--- NOTE | 2016-08-12 14:55 | ED MAR SUMMARY ---
..... Medication Administration Record [facility] [address] [place], [place] [id number] Patient: VIVI ISSA Visit ID: [id number] 40y, F Weight: 140.6 kg Height/Length: 63 in BMI: 54.9 ALLERGIES: NSAIDs
--- NOTE | 2016-08-12 14:55 | ED MED RECONCILIATION SUMMARY ---
Patient: VIVI ISSA Medication Reconciliation Report [facility] VisitID: [id number] [address] [place] [address] 40y, F Registration Date/Time: 08/12/2016 Weight: 140.6 kg Height/Length: 63 in. BMI: 54.9 ALLERGIES: NSAIDs The patient's Home Medications are listed below: NONE. The source(s) of the original Home Medication information: patient's pill bottles The following Medications were given to the patient in the Emergency Department: None. The following Medications were prescribed to the patient: Bactrim DS 800 mg / 160 mg: take 1 tablet orally every 12 hours for 10 days. No refill. -- Angie Hannah A.R.N.P.
== END 2016-08-12 14:20 | disposition home or self-care (01) ==
LOC: ED SRH 12:56
DX: L03.115 Cellulitis of right lower limb (principal)